=== PATIENT | male | born 1995 | race Caucasian/White ===

== ENCOUNTER 2016-11-16 21:16 | Emergency (ER) | payer SELFPAY ==
--- NOTE | 2016-11-16 21:23 | ER Document Report ---
ED Medical Screen (RME) - General Stated Complaint: LEG PAIN Mode of Arrival: Ambulatory Information source: Patient Notes: Pt reports worked all night at [employer]. When he woke up today his left lower leg was hurting. Denies past medical history of injury to foot/ leg. Reports pain to bottom of foot/heel and up his leg. no obvious signs of deformity. Reports played basketball two days ago, no injury. Reports diarrhea twice today. Took tylenol with no relief of the pain. Flexes/points toe. I have greeted and performed a rapid initial assessment of this patient. A comprehensive ED assessment and evaluation of the patient, analysis of test results and completion of the medical decision making process will be conducted by additional ED providers.
[2016-11-16] MEDS ORDERED: IBUPROFEN 800 MG TABLET PO ONE (21:24)
--- NOTE | 2016-11-17 00:37 | ER Document Report ---
ED General - General Chief Complaint: Ankle Pain Stated Complaint: LEG PAIN Mode of Arrival: Ambulatory Notes: Patient is a 21-year-old male who presents with complaints of pain over the medial aspect of his left ankle. Charts his Achilles tendon but the patient actually has no pain over the Achilles tendon. All the pain is on the medial aspect of left ankle. He says he played basketball 2 days straight for about 12 hours each time and then he worked 8 hours shifts afterwards. He says he had no rest of his ankles. No hurts to bear weight and is little pain over the medial aspect of his ankle. No weakness or numbness. No other complaints at this time. TRAVEL OUTSIDE OF THE [place] IN LAST 30 DAYS: No Past Medical History - General Information source: Patient - Social History Smoking Status: Current Every Day Smoker Chew tobacco use (# tins/day): No Frequency of alcohol use: Rare Drug Abuse: None Family History: Reviewed & Not Pertinent Patient has suicidal ideation: No Patient has homicidal ideation: No Renal/ Medical History: Denies: Hx Peritoneal Dialysis Review of Systems - Review of Systems Notes: My Normal Review Basic REVIEW OF SYSTEMS: CONSTITUTIONAL : Denies fever, chills, or sweats. Denies recent illness. MUSCULOSKELETAL: Left ankle pain. SKIN: Denies rash or skin lesions. NEUROLOGICAL: Denies sensory or motor loss. ALL OTHER SYSTEMS REVIEWED AND NEGATIVE. Physical Exam - Vital signs Vitals: Temp Pulse Resp BP Pulse Ox 98 F 89 18 162/78 H 98 11/16/16 21:21 11/16/16 21:21 11/16/16 21:21 11/16/16 21:21 11/16/16 21:21 - Notes Notes: General Appearance: Well nourished, alert, cooperative, no acute distress, mild to moderate obvious discomfort. Vitals: reviewed, See vital signs table. Extremities: strength 5/5 in all extremities, good pulses in all extremities, pain to palpation over the deltoid ligament on the left ankle. No pain to palpation over the Achilles tendon. Negative Cerrato's test. Good strength with flexion and extension of the ankle. No edema. Skin: warm, dry, appropriate color, no rash Neuro: speech clear, oriented x 3, normal affect, responds appropriately to questions. Course - Vital Signs Vital signs: Temp Pulse Resp BP Pulse Ox 98 F 89 18 162/78 H 98 11/16/16 21:21 11/16/16 21:21 11/16/16 21:21 11/16/16 21:21 11/16/16 21:21 - Transfer of Care Notes: 11/17/16 01:56 Patient's x-ray was negative. He has pain mainly over the deltoid ligament. He looks well. This affected just has a strain of the ligament itself. I will give him crutches and the splint. We'll have him be nonweightbearing. Urgent return to ER if has worsening pain or feels unwell. Patient agrees with plan will be discharged home. Dictation of this chart was performed using voice recognition software; therefore, there may be some unintended grammatical errors. Discharge - Discharge Clinical Impression: Ankle pain, left Qualifiers: Chronicity: acute Qualified Code(s): M25.572 - Pain in left ankle and joints of left foot Condition: Good Disposition: HOME, SELF-CARE Instructions: Ankle Stirrup Splint ([facility]), Use of Crutches ([facility]) Additional Instructions: Please stay nonweightbearing on your ankle for next 3 days. After that start to try to walk as tolerated. Please follow-up with your doctor in 5 days if you continue to have pain in your ankle. I will give you the number to orthopedic clinic to follow up with if you do not have improvement in your pain after 5 days. Please do not play basketball or do any exertional activities until you are completely pain-free. Forms: Return to Work Referrals: KATHRYN PALACIO MD [ACTIVE STAFF] - Follow up in 3-5 days
[2016-11-17 02:34] VITALS: BP 143/80
== END 2016-11-17 02:34 | disposition home or self-care (01) ==
LOC: ER 21:16
DX: M25.572 Pain in left ankle and joints of left foot (principal); F17.200 Nicotine dependence, unspecified, uncomplicated
CPT/HCPCS: 99283; 73610; L1902